=== PATIENT | male | born 1995 | race Caucasian/White ===

== ENCOUNTER 2018-07-11 19:18 | Emergency (ER) | payer BC, OTHER ==
[2018-07-11 20:12] VITALS: BP 154/82
--- NOTE | 2018-07-11 20:37 | UC ---
Skin Complaint HPI - HPI Summary HPI Summary: 22 y/o male presents to the urgent care c/o rash and hives w/ itchiness on chest , back, B/L arms and B/L legs for the past 2 weeks. Rash started in his arms and then it has spread due to itchiness. He has Hx of RT ankle surgery in 2013 and now since he has been itching a lot at night he has developed a circular rash around his RT lower leg w/ swelling. His leg is usually swollen at the end of the day since he works at all day standing up. Pt started vaping around the same time rash started and he is unsure if rash is related to that. Pt denies throat tightening, SOB, hoarseness, fever, chest pain,abdominal pain, N/V/D. - History of Current Complaint Chief Complaint: UCGeneralIllness Time Seen by Provider: 07/11/18 20:34 Stated Complaint: HIVES AND SKIN CONDITION ON LEG Hx Obtained From: Patient Onset/Duration: Gradual Onset, Lasting Weeks - 2 weeks, Still Present, Worse Since - 3 days Skin Exposure Onset/Duration: Weeks Ago - 2 weeks Timing: Constant Onset Severity: Mild Current Severity: Moderate Pain Intensity: 0 Pain Scale Used: 0-10 Numeric Location: Generalized - chest, back , B/L arms, legs,, Other - Rt leg swelling and red Character: Swelling, Pruritus, Redness Aggravating Factor(s): Humidity, Touch Alleviating Factor(s): OTC Meds Associated Signs & Symptoms: Positive: Rash. Negative: Nausea, Vomiting, Numbness, Difficulty Breathing, Fever, Chills, Hoarseness, Throat Tightening, Lightheadedness Related History: Possible Reaction to: Environmental Exposure, Other: - Rt leg swelling pt w/PMHX of RT ankle surgery in 2013 - Allergy/Home Medications Allergies/Adverse Reactions: Allergies Allergy/AdvReac Type Severity Reaction Status Date / Time No Known Allergies Allergy Verified 07/11/18 20:03 Review of Systems Constitutional: Negative Skin: Rash - generalized rash in chest , back, B/L legs, B/L arms, Other - swelling of RT lower leg, generalized itchiness Eyes: Negative ENT: Negative Respiratory: Negative Cardiovascular: Negative Gastrointestinal: Negative Genitourinary: Negative Motor: Negative Neurovascular: Negative Musculoskeletal: Negative Neurological: Negative Psychological: Negative Is Patient Immunocompromised?: No All Other Systems Reviewed And Are Negative: Yes PMH/Surg Hx/FS Hx/Imm Hx Previously Healthy: Yes - Pt denies PMHX - Surgical History Surgical History: Yes Surgery Procedure, Year, and Place: 2011 LT [facility]. 2011 RT [facility]. 2013 Right Ankle- Dr. Bergeron [facility] - Family History Known Family History: Positive: Hypertension - Social History Occupation: Employed Full-time Lives: With Family Alcohol Use: Daily Alcohol Amount: 1-2 beers q daily Substance Use Type: None Smoking Status (MU): Former Smoker Type: eCigarettes, Smokeless Tobacco Amount Used/How Often: 1 hit occassionaly q daily/ 1/2 can chew work days Have You Smoked in the Last Year: Yes When Did the Patient Quit Smoking/Using Tobacco: ~06/27/18 Household Exposure Type: Cigarettes Physical Exam - Summary Physical Exam Summary: Vital Signs Reviewed: Yes General: well developed, well nourished male sitting in the examining table w/o any apparent distress. Eyes: Positive: Conjunctiva Clear - PERRLA, EOMI ENT: Positive: Normal ENT inspection, Hearing grossly normal, Pharynx normal, TMs normal Neck: Positive: Supple, Nontender, No Lymphadenopathy Respiratory: Positive: Chest nontender, Lungs clear, Normal breath sounds Cardiovascular: Positive: RRR, No Murmur, Pulses Normal Abdomen Description: Positive: Nontender, No Organomegaly, Soft. Negative: CVA Tenderness (R), CVA Tenderness (L) Bowel Sounds: Positive: Present Musculoskeletal: Positive: Strength Intact, ROM Intact, Neurological Exam: Normal Psychological Exam: Normal Skin: Positive: rashes - Generalized erythematous maculopapular eruption w/ signs of excoriation in chest, abdomen, back, B/L arms and B/L legs. RT lower leg dorsal side w/ erythematous patch w/ indistinct borders, warm to touch, swelling and mild tender to palpation. Pt w/ positive mild leg edema. Negative alverto's sign, Pulses WNL, capillary refill brisk, sensation intact. Medial malleolus w/ a scar form previous Rt ankle surgery. Triage Information Reviewed: Yes Vital Signs: Initial Vital Signs Temp 99.0 F 07/11/18 20:04 Pulse 82 07/11/18 20:04 Resp 18 07/11/18 20:04 BP 154/82 07/11/18 20:04 Pulse Ox 97 07/11/18 20:04 Course/Dx - Course Course Of Treatment: 22 y/o male presents to the urgent care c/o rash and hives w/ itchiness on chest, back, B/L arms and B/L legs for the past 2 weeks. Rash started in his arms and then it has spread due to itchiness. He has Hx of RT ankle surgery in 2013 and now since he has been itching a lot at night he has developed a circular rash around his RT lower leg w/ swelling. His leg is usually swollen at the end of the day since he works at all day standing up. Pt started vaping around the same time rash started and he is unsure if rash is related to that. Pt denies throat tightening, SOB, hoarseness, fever, chest pain ,abdominal pain, N/V/D. Hx obtained. Pt w/ RT lower leg cellulitis and and generalized erythemathous maculopapular eruption w/ scattered hives on examination. Pt Rx Keflex PO, Prednsione PO taper dose, and topical triamcinolone cream.First dose given at the clinic tonight. rash demarcated with a skin marker and Advised if rash doubles in size and if she develops fever to go to the ER for further treatment. Pt strongly advised to f/u w/ PCP from the [facility] network for further management since he may be developing venous insuffiency. Pt BP today elevated w/o Hx of HTN. Pt advised to decrease salt in diet and monitor BP at home if it continues to be elevated to f/u with PCP for further management. D/C instructions explained. Pt understood and agreed w/ plan of care. - Differential Diagnoses - Skin Complaint Differential Diagnoses: Allergic Reaction, Cellulitis, Contact Dermatitis, Local Allergic Reaction, MRSA, Urticaria, Other - DVT, venous insufficency, - Diagnoses Provider Diagnoses: 1- RT lowr leg cellulitis. 2- Urticaria. 3- RT lower leg edema. 4- Elevated BP w/o Hx of HTN Discharge - Sign-Out/Discharge Documenting (check all that apply): Patient Departure All imaging exams completed and their final reports reviewed: No Studies - Discharge Plan Condition: Stable Disposition: HOME Prescriptions: Cephalexin CAP* [Keflex CAP*] 500 mg PO QID #27 cap predniSONE TAB* [Deltasone 20 MG TAB*] 20 mg PO DAILY #8 tab Triamcinolone 0.1% CREAM (NF) [Kenalog 0.1% Cream (NF)] 1 applic .SEE ORDER BID #1 tube Patient Education Materials: Contact Dermatitis (ED), Urticaria (ED), Cellulitis (ED), Low-Sodium Diet (ED) Referrals: [facility] PHYSICIAN REFERRAL [Outside] - 2 Days Additional Instructions: 1-Please Start taking Prednisone PO taper dose starting tomorrow. first loading dose given today at the clinic. 2- Take Keflex PO as directed to alleviate cellulitis. 3- Apply Triamcinolone topical cream as directed. Avoid exposure to the sun. 4-- Please f/u with your PCP or Teletype Telegrapher Dr Alvarez in 2-3 days for further evaluation and treatment. 5- Please elevate your legs at night time and wear compression stocking to decrease swelling. Please f/u w/ your PCP for further management you may be developing Venous insufficiency. 6- If symptoms worsen and you develop SOB, fever or difficulty breathing please go immediately to the ER for further management. 7-Your BP is elevated today. please decrease salt in your diet, monitor BP and if it continues to be elevated please f/u with your PCP for further management - Billing Disposition and Condition Condition: STABLE Disposition: Home
[2018-07-11] MEDS ORDERED: predniSONE TAB* 20 MG PO ONE (20:52)
[2018-07-11] MEDS ORDERED: Cephalexin CAP* 500 MG PO ONE (20:52)
== END 2018-07-11 21:10 | disposition home or self-care (01) ==
LOC: UCCORT 19:18
DX: L03.115 Cellulitis of right lower limb (principal); L50.9 Urticaria, unspecified; R60.0 Localized edema; I10 Essential (primary) hypertension; Z87.891 Personal history of nicotine dependence
CPT/HCPCS: 99202; A9270-GY; G0463; J7512